=== PATIENT | female | born 1965 | race African-American/Black ===

== ENCOUNTER 2017-09-02 13:19 | Day surgery (SDC) | payer OTHER ==
[~2017-09-02] VITALS: Ht 170.2 cm; Wt 106.0 kg
[~2017-09-02 13:19] MED LIST: BENA1TAB44 PO; GLUCTAB PO; HYDR-3535 PO; LEVO137T2 PO; LISI10TA PO
[2017-09-02] MEDS ORDERED: MIDAZOLAM HCL 5 MG/5 ML VIAL ONE (13:30)
[2017-09-02] MEDS ORDERED: fentaNYL CITRATE 250 MCG/5 ML AMP ONE (13:30)
[2017-09-02] MEDS ORDERED: SODIUM BICARBONATE 8.4% INJ 50 ML ONE (13:31)
[2017-09-02] MEDS ORDERED: LIDOCAINE HCL 2% 50 ML VIAL ONE (13:31)
[2017-09-02] MEDS ORDERED: LIDOCAINE 1%/EPINEPHrine 1:100,000 SOLN 20 ML VIAL ONE (13:32)
--- NOTE | 2017-09-02 13:48 | PD.VS.PN ---
Pre-operative Note Pre-operative diagnosis: LLE venous insufficiency Planned procedure: L GSV RFA Interval History: Pt has been feeling well since I saw her in clinic. No F/C or other changes that would preclude surgery. Labs: none needed Blood: none needed Imaging: none needed - Ultrasound reviewed: L GSV insufficiency Orders: NPO Ancef 2g IV OCTOR Post-operative destination: DOCU Operative site marked: Yes Consent: Informed consent has been obtained from Will Carrizales. I have explained the procedure in detail and discussed the risks, benefits, and potential complications. All questions have been answered. Dank Murcia MD Sep 02, 2017 13:48
[2017-09-02] MEDS ORDERED: ceFAZolin INJ 1,000 MG VIAL ONE (14:14)
[2017-09-02] MEDS ORDERED: HYDR-3583 PO (14:16)
[2017-09-02] MEDS ORDERED: METF500T PO (14:16)
[2017-09-02] MEDS ORDERED: LISI10TA PO (14:16)
[2017-09-02] MEDS ORDERED: BENA20TA4 PO (14:16)
[2017-09-02] MEDS ORDERED: LEVO137T2 PO (14:16)
[2017-09-02 14:23] VITALS: BP 136/88; PULSE 66; RESP 18; TEMP 98.2; O2SAT 98
[2017-09-02] MEDS ORDERED: MIDAZOLAM HCL 2 MG/2 ML VIAL ONE (14:42)
--- NOTE | 2017-09-02 14:59 | HHI.PR ---
Immediate Post Op Note Procedure Date: Sep 02, 2017 Pre Op Diagnosis: L LE venous insufficiency Post Op Diagnosis: same Surgeon: Dank Murcia Yard Inspector(s): none Procedure: L GSV RFA Findings: successful RFA no DVT Complications: none Specimen(s) removed: none Estimated blood loss: 5mL Anesthesia: MAC Drains: None Patient to: Other (DOCU) Patient Condition: Good Date/Time of Procedure: SEE SURGICAL CARE RECORD Dank Murcia MD Sep 02, 2017 14:59
--- NOTE | 2017-09-02 17:59 | MP ---
cc: HEIDE MURCIA MD DATE OF SURGERY: 09/02/2017 PREOPERATIVE DIAGNOSIS: Left lower extremity venous insufficiency, symptomatic. POSTOPERATIVE DIAGNOSIS: Left lower extremity venous insufficiency, symptomatic. OPERATION: Left leg great saphenous vein radiofrequency ablation. ATTENDING SURGEON: Heide Murcia MD. ANESTHESIA local with sedation INDICATIONS Ms. Carrizales is a 52-year-old lady who has left lower extremity venous insufficiency and she is worn compression faithfully for over year with persistent symptoms. Preoperative imaging suggested her left saphenous vein was insufficient and she was taken to the operating room for this. DESCRIPTION OF PROCEDURE: Informed consent was obtained from the patient. She was taken to the operating room and placed supine on the operating room table, appropriate time out was taken, showing the patient identified operative site and planned procedure. The administration of 2 grams of Ancef was initiated prior to skin incision will be discontinued after single preoperative dose. Everyone in the room agreed with the time-out and we proceeded. Her left leg was prepped and draped and with the patient reversed Trendelenburg position, the saphenous vein was accessed after local infiltration of lidocaine. This was done with the 21 gauge micropuncture needle, which was exchanged using Seldinger technique for a 7 Maltese sheath. The closure fast catheter was advanced up to 2 cm on the saphenofemoral junction. The patient was placed in Trendelenburg position. The saphenous vein was anesthetized with cullen saphenous tumescent anesthesia and the vein was ablated segmentally. After the catheter and sheath removed, pressure of hemostasis. There was a duplex which was performed that showed no deep venous thrombosis. The patients leg was wrapped in the Tramaine bandage, there were no complications. I was present and scrubbed for the entire procedure. MD SUHAS Clay/audrey /4:54 PM /5:46 PM
== END 2017-09-02 16:32 | disposition home or self-care (01) ==
LOC: HDOC 13:19 → HDIC 13:20 → HDOC 16:32
PROVIDERS: ATTEND Surgery
DX: I83.813 Varicose veins of bilateral lower extremities with pain (principal); I87.2 Venous insufficiency (chronic) (peripheral)
CPT/HCPCS: 36475; 99152; 99153; C1769; J0690; J2250; J3010

== ENCOUNTER 2018-07-28 06:13 | Observation (INO) ==
[2018-07-28] MEDS ORDERED: Chlorhexidine Gluconate 2% 1 Pack (2 Cloths) TOPICAL ONE (06:34)
[2018-07-28] MEDS ORDERED: Metoprolol Tartrate 25 MG Tablet PO ONE (06:34)
[2018-07-28] MEDS ORDERED: ceFAZolin 2 GM IV; once IV.SIG PRN (06:38)
[2018-07-28] MEDS ORDERED: Sodium Chlor 0.9% Inj 500 ML IV.SIG SCH (07:00)
[2018-07-28] MEDS ORDERED: fentaNYL Citrate Inj 250 MCG/5 ML Ampul ONE (07:15)
[2018-07-28] MEDS ORDERED: EPINEPHrine PF/SF Inj 1 MG/ML Ampul I-OCULAR ONE (07:16)
[2018-07-28] MEDS ORDERED: Lidocaine 1%/Epinephrine 1:100,000 Inj 30 ML Vial ONE (07:17)
[2018-07-28] MEDS ORDERED: Famotidine PF Inj 20 MG/2 ML Vial ONE (07:21)
[2018-07-28] MEDS ORDERED: Lidocaine 1%/Epinephrine 1:100,000 Inj 50 ML Vial ONE (09:13)
[2018-07-28] MEDS ORDERED: fentaNYL Citrate Inj 100 MCG/2 ML Ampul ONE (10:37)
--- NOTE | 2018-07-28 12:21 | P.OP ---
Preoperative Diagnosis: Bilateral Macromastia Postoperative Diagnosis: Bilateral Macromastia Procedure: Bilateral Reduction mammoplasty Anesthesia: GETA Surgeon: Jeff Cummings MD Electrical Maintenance Engineer: Juana Miranda Rn Estimated blood loss (mL): 50 Operation and Findings: Indications: 53 year old black female with large breasts, symptomatic and appropriate for breast reduction from a medical stand point. She underwent detailed explanation of surgery, risks, possible complications, pros and cons of doing the surgery in [facility]. She was shown drawings, surgery Zapien pattern inferior pedicle design, ASPS brochure and informed consent package given. She understands general risks and possible complications such as bleeding, damage to neurovascular bundles in the line of breast tissue resection, possible loss of feeling in nipples. and other risks during surgery - including those with anesthesia, deep vein thrombosis, UTI, hypothermia etc. She also understands the possibility of flap necrosis, breast tissue and fat necrosis, bleeding, hematoma, seroma, infection, wound healing problems, dehiscence, possible future surgeries etc. there may be abnormal scar healing such as keloid, hypertrophic, hyperpigmented scars, some asymmetry will remain between two sides, future breast cancer screening mammograms will need to be done several months post op to establish a new baseline. She has no additional concerns and is willing to proceed with surgery. Procedure: Preop markings done standing up in holding area. Patient was brought to the OR, anesthesia started, jean, SCD heating blanket and antibiotics completed, time out completed, prep and drape done. Tumescent mix of slaine, lido with epi and additional 1 cc epi in 3000 cc bag mixed used. Preop markings reinforced, Nipple areola ring marker used to outline the areola and the inferior pedicle skin tumefied - de-epithelization done including the inferior pedicle, inverted V above the nipple and extending both laterally and medially. Zapien pattern flaps raised after injecting tumescent fluid along the dissection plane. Upper flap elevated to the chest wall and another 2 cm space cleared as well. starting Laterally, the bra roll and lateral breast tissues raised off the chest wall up to one cm medial to the anterior axillary line. The areas of de-epithelized wings raised off the breast tissue - laterally to the anterior axillary line and medially to approx half way between the cleavage line and nipple level. Breast reduction carried out taking the lateral, superior and a small portion of upper medial breast mound with a slope to make the base wider than the mound. Hemostasis completed. The dermal wings secured to the anterior axillary line on the lateral aspect to just below infraclavicular area to the pectoral fascia and to the level of manubrium on the medial aspect, creating a good internal support for the breast mound. The medial flap secured to the inframammary line taking it slightly lateral to the vertical 6 o'clock line, Lateral flap closure started from the outer corner - first placing tacking sutures to allow draping of the flap over the breast mound, STEVE drains also inserted and secured at the same time, the medial flap excess trimmed and flap inset completed. Nipple areola position marked - taking 9.5 cm from the IMF line to the lower border of areola and making the midline to the medial border of areola at 14 cm each. Skin ramona excised and the areolae exteriorized, breast mound position and symmetry compared and was excellent. Areolae also sutured in place. All sutures internal Vicryls only, Dermabond for the skin edges. All areas cleaned and sterile dressing and bra support applied. Patient remained stable through surgery, blood loss less than 50 cc total. Breast reduction tissue weights 715 grams Right and 720 grams Left - plus additional 25 grams each side of unmeasured tissues. Breast tissues sent for pathology.
[2018-07-28] MEDS ORDERED: Morphine Sulfate Inj 2 MG/ML Vial ONE ×2 (14:31→15:24)
[2018-07-28] MEDS: HYDROmorphone PF Inj 2 MG/ML Vial IV.PUSH PRN (20:01)
[2018-07-28] MEDS ORDERED: NUPERCAINAL RECTAL SCH (21:00)
[2018-07-29] MEDS: HYDROmorphone PF Inj 2 MG/ML Vial IV.PUSH PRN ×2 (00:14→04:56)
[2018-07-29] MEDS ORDERED: Levothyroxine 112 MCG Tablet PO SCH (06:00)
[2018-07-29 08:19] VITALS: RESP 18
[2018-07-29] MEDS ORDERED: amLODIPine 5 MG Tablet PO SCH (09:00)
[2018-07-29] MEDS ORDERED: hydroCHLOROthiazide 25 MG Tablet PO SCH (09:00)
--- NOTE | 2018-07-29 10:23 | P.PNPLA ---
Subjective Remarks: Post op day 1 Patient doing very well, minimal discomfort now, slept well. Vitals normal Breasts soft, excellent shape and position, no hematoma, flaps warm and viable. Suture lines clean, covered. STEVE drains functioning. OK to DC today. FU in one week. Objective Vital Signs: Vital Signs - 24 hr 07/28/18 12:58 07/28/18 13:11 07/28/18 13:41 Temperature 97.8 F Pulse Rate 81 76 65 Respiratory Rate 16 14 14 Blood Pressure 138/73 140/73 144/79 H Pulse Oximetry 94 L 98 100 07/28/18 13:43 07/28/18 14:11 07/28/18 14:16 Temperature Pulse Rate 64 Respiratory Rate 14 Blood Pressure 130/83 Pulse Oximetry 100 100 100 07/28/18 14:26 07/28/18 14:27 07/28/18 14:56 Temperature 98.4 F Pulse Rate 63 65 69 Respiratory Rate 14 14 Blood Pressure 133/76 137/78 Pulse Oximetry 100 98 07/28/18 18:36 07/28/18 20:00 07/29/18 00:00 Temperature 97.4 F L 97.9 F Pulse Rate 77 69 Respiratory Rate 16 20 20 Blood Pressure 124/66 112/60 Pulse Oximetry 93 L 95 07/29/18 08:00 Temperature 98.3 F Pulse Rate 66 Respiratory Rate 18 Blood Pressure 116/65 Pulse Oximetry 95 Intake & Output 07/27/18 07/28/18 07/29/18 07/30/18 06:59 06:59 06:59 06:59 Intake Total 3290 / 3290 Output Total 1665 / 1665 Balance 1625 / 1625 Weight 113.398 kg 113.4 kg
[2018-07-29 11:59] VITALS: BP 104/58; PULSE 65; TEMP 99; O2SAT 96
== END 2018-07-29 16:26 | disposition home or self-care (01) ==
LOC: PHSDC 06:13 → PH3 06:13
PROVIDERS: ADMIT Plastic Surgery; ATTEND Plastic Surgery